=== PATIENT | female | born 1955 | race Caucasian/White ===

== ENCOUNTER 2023-08-24 14:22 | Outpatient (CLI) | payer MEDICARE, OTHER | END 2023-08-24 14:23 | disposition home or self-care (01) | LOC: CSHMAMMO 14:22 | PROVIDERS: ATTEND Internal Medicine Rheumatology | DX: M81.0 Age-related osteoporosis without current pathological fracture (principal); M85.89 Other specified disorders of bone density and structure, multiple sites | CPT/HCPCS: 77080 ==